=== PATIENT | male | born 1975 | race Caucasian/White ===

== ENCOUNTER 2016-11-25 03:37 | Emergency (ER) | payer SELFPAY ==
[~2016-11-25] VITALS: Ht 170.2 cm; Wt 72.0 kg
[2016-11-25 03:40] VITALS: Ht 170.2 cm; Wt 72.0 kg
--- NOTE | 2016-11-25 05:54 | ERD ---
ER Documentation Chief Complaint Date/Time DATE: 11/25/16 TIME: 05:52 Chief Complaint etoh intoxication, chest pain HPI This is a 41-year-old male comes in saying he has on and off chest pain. This has been drinking relatively heavily over the past 24 hours. He says he feels very anxious. Denies any shortness of breath. Denies any diaphoresis. Patient states chest pain is sharp, electric-like, midsternal, radiates to both the right and left side of his chest wall. No exacerbating or alleviating factors. Mild to moderate in intensity. ROS All systems reviewed and are negative except as per history of present illness. Allergies Allergies: Coded Allergies: No Known Allergy (Unverified , 11/25/16) PMhx/Soc Medical and Surgical Hx: pt denies Medical Hx, pt denies Surgical Hx Hx Alcohol Use: Yes Hx Substance Use: Yes (marijuana) Hx Tobacco Use: Yes Smoking Status: Current every day smoker Physical Exam Vitals Vital Signs Date Time Temp Pulse Resp B/P Pulse Ox O2 Delivery O2 Flow Rate FiO2 11/25/16 03:40 97.8 113 20 141/88 97 Physical Exam Const: [] Head: Atraumatic Eyes: Normal Conjunctiva ENT: Normal External Ears, Nose and Mouth. Neck: Full range of motion..~ No meningismus. Resp: Clear to auscultation bilaterally Cardio: Regular rate and rhythm, no murmurs Abd: Soft, non tender, non distended. Normal bowel sounds Skin: No petechiae or rashes Back: No midline or flank tenderness Ext: No cyanosis, or edema Neur: Awake and alert Psych: Normal Mood and Affect Results 24 hrs Current Medications Medications (Trade) Dose Ordered Sig/Salvador Route PRN Reason Start Time Stop Time Status Last Admin Dose Admin Lorazepam (Ativan) 1 mg ONCE ONCE PO 11/25/16 06:00 11/25/16 06:01 Procedures/MDM EKG: Rate/Rhythm: Normal Sinus Rhythm QRS, ST, T-waves: No changes consistent w/ acute ischemia Impression: No evidence of ischemia or arrhythmia Medical decision makin-year-old male who essentially comes in for acute alcohol intoxication. EKG available. Chest was seen for the likely from anxiety related issue. At this point he feels much better after p.o. Ativan. He will be discharged home. He has been advised to stop drinking. Departure Diagnosis: Primary Impression: Alcoholic intoxication Complication of substance-induced condition: uncomplicated Qualified Code: F10.120 - Alcoholic intoxication, uncomplicated Additional Impression: Chest pain Chest pain type: unspecified Qualified Code: R07.9 - Chest pain, unspecified type Condition: Stable Patient Instructions: Alcohol Intoxication EVELINE OTT Nov 25, 2016 05:54
[2016-11-25] MEDS ORDERED: LORAZEPAM 1 MG TAB PO ONE (06:00)
[2016-11-25 06:27] VITALS: BP 132/88; PULSE 82; RESP 20
== END 2016-11-25 06:28 | disposition home or self-care (01) ==
LOC: E/R 03:37
DX: F10.129 Alcohol abuse with intoxication, unspecified (principal); R07.9 Chest pain, unspecified; F17.210 Nicotine dependence, cigarettes, uncomplicated
CPT/HCPCS: 93005; 99283